=== PATIENT | male | born 1950 | race Caucasian/White ===

== ENCOUNTER 2020-04-10 09:31 | Day surgery (SDC) | payer MEDICARE, BC ==
[2020-04-10] VITALS (12 sets, daily range): BP systolic 116–152; BP diastolic 43–87
[~2020-04-10] VITALS: Ht 175.3 cm; Wt 87.6 kg
[~2020-04-10 09:31] MED LIST: AMLO1CAP PO; ASPI-611 PO; ATOR20TA PO; ESOM40CA PO; MULT-342 PO; NEBI2.5T3 PO; OMEG-166 PO; VARE1TAB11 PO; claritin PO
[2020-04-10] MEDS ORDERED: normal saline 1,000 ML IV SCH (09:55)
[2020-04-10] MEDS ORDERED: diphenhydrAMINE 25mg capsule PO PRN (09:55)
[2020-04-10] MEDS ORDERED: nitroGLYCERIN 0.4mg SUBLingual tab SL PRN (09:55)
[2020-04-10] MEDS ORDERED: LORazepam 0.5 MG tablet PO PRN (09:55)
[2020-04-10] MEDS ORDERED: ALLEGRA PO (10:02)
[2020-04-10] MEDS ORDERED: ROSU20TA2 PO (10:02)
[2020-04-10] MEDS ORDERED: NEBI10TA2 PO (10:02)
[2020-04-10] MEDS ORDERED: iohexol 350 MG/ML 50ML vial IV ONE (10:14)
[2020-04-10] MEDS ORDERED: fentaNYL/PF 50MCG/1 ML 2ML syringe ONE ×2 (10:14→10:58)
[2020-04-10] MEDS ORDERED: iohexol 350MG/ML 100ml bottle IV ONE ×2 (10:14→11:21)
[2020-04-10] MEDS ORDERED: midazolam 2 mg/2 ml injection ONE ×2 (10:14→10:56)
[2020-04-10] MEDS ORDERED: LIDOcaine 1% (10mg/ml)w/preservative injection 20ml MDV ONE (10:14)
[2020-04-10] MEDS ORDERED: OXAZEpam 15mg capsule PO PRN (10:20)
[2020-04-10] MEDS ORDERED: acetaminophen 325mg tablet PO PRN (10:20)
[2020-04-10] MEDS ORDERED: proCHLORperazine 10 MG/2 ml inj IV PRN (10:20)
[2020-04-10] MEDS ORDERED: HYDROcodone/acetaminophen 10/325mg tab PO PRN (10:20)
[2020-04-10] MEDS ORDERED: HYDROcodone/acetaminophen 5mg/325mg tablet PO PRN (10:20)
[2020-04-10] MEDS ORDERED: ondansetron/PF 4mg/2ml inj IV PRN (10:20)
[2020-04-10] MEDS ORDERED: diphenhydrAMINE 50 mg/ml inj ONE (10:40)
== END 2020-04-10 17:27 | disposition home or self-care (01) ==
LOC: SSTAY O 09:31
PROVIDERS: ATTEND Internal Medicine Cardiovascular Disease
DX: R94.39 Abnormal result of other cardiovascular function study (principal); R07.89 Other chest pain; I25.10 Atherosclerotic heart disease of native coronary artery without angina pectoris; I25.82 Chronic total occlusion of coronary artery; E78.5 Hyperlipidemia, unspecified; G89.4 Chronic pain syndrome; K21.9 Gastro-esophageal reflux disease without esophagitis; I10 Essential (primary) hypertension; M19.90 Unspecified osteoarthritis, unspecified site; Z72.89 Other problems related to lifestyle; F17.210 Nicotine dependence, cigarettes, uncomplicated; Z88.0 Allergy status to penicillin; Z88.8 Allergy status to other drugs, medicaments and biological substances; Z79.899 Other long term (current) drug therapy
CPT/HCPCS: 93459; 99152; 99153; C1760; C1769; J1200; J2001; J2250; J3010; Q9967; A4620; A6258